=== PATIENT | male | born 1970 | race Caucasian/White ===

== ENCOUNTER 2018-06-11 08:37 | Emergency (ER) | END 2018-06-11 11:26 | disposition home or self-care (01) ==

== ENCOUNTER 2018-09-11 08:25 | Emergency (ER) | payer BC ==
[~2018-09-11] VITALS: Ht 172.7 cm; Wt 84.0 kg
[~2018-09-11 08:25] MED LIST: ALBU18HF INHALATION; BENZ-6 PO; IBUP-1542 PO; PRED20TA PO
[2018-09-11 08:27] VITALS: BP 167/87; PULSE 60; RESP 18; Ht 172.7 cm; Wt 84.0 kg
[2018-09-11] MEDS ORDERED: AZIT250T PO (08:57)
[2018-09-11] MEDS ORDERED: PROM6.2515 PO (08:57)
[2018-09-11] MEDS ORDERED: ALBU8.5H8 INH (08:57)
--- NOTE | 2018-09-11 10:29 | ERD ---
ER Documentation Chief Complaint Chief Complaint pt bib self with c/o cough for a few wks, pain with coughing HPI 47-year-old male presenting with cough for a few weeks with associated chest wall pain. Patient has no pleuritic chest pain and denies any fevers. He describes as a dry cough and has not taken medications for symptoms. He denies any leg swelling or heart pain. Denies any radiating chest pain. Denies medical problems. NKDA. Surgical history denies. Social history denies ROS All systems reviewed and are negative except as per history of present illness. Medications Home Meds Active Scripts Albuterol Sulfate* (Proair HFA*) 8.5 Gm Hfa.aer.ad, 2 PUFF INH Q4, #1 INHALER Prov:CARL MEJIA PA-C 09/11/18 Promethazine Hcl* (Promethazine Hcl* Syrup) 6.25 Mg/5 Ml Syrup, 6.25 MG PO Q6H PRN for COUGH, #100 ML Prov:CARL MEJIA PA-C 09/11/18 Azithromycin* (Zithromax*) 250 Mg Tablet, 250 MG PO .ZPACK DIRECTED, #6 TAB TAKE 500 MG (2 TABS) THE FIRST DAY THEN 250 MG (1 TAB) DAYS 2-5 Prov:CARL MEJIA PA-C 09/11/18 Ibuprofen* (Motrin*) 600 Mg Tab, 600 MG PO Q6, #30 TAB Prov:MAVERICK LOPES PA-C 06/11/18 Prednisone* (Prednisone*) 20 Mg Tab, 40 MG PO DAILY for 5 Days, TAB Prov:MAVERICK LOPES PA-C 06/11/18 Benzonatate* (Tessalon Perle*) 100 Mg Capsule, 100 MG PO Q8H PRN for COUGH for 7 Days, CAP Prov:MAVERICK LOPES PA-C 06/11/18 Albuterol Sulfate* (Ventolin HFA*) 18 Gm Hfa.aer.ad, 2 PUFF INHALATION Q6H, #1 INHALER Prov:MAVERICK LOPES PA-C 06/11/18 Allergies Allergies: Coded Allergies: No Known Allergy (Unverified , 09/11/18) PMhx/Soc Medical and Surgical Hx: pt denies Medical Hx, pt denies Surgical Hx Hx Alcohol Use: Yes Hx Substance Use: No Hx Tobacco Use: Yes Smoking Status: Former smoker FmHx Family History: No diabetes, No coronary disease, No other Physical Exam Vitals Vital Signs Date Temp Pulse Resp B/P (MAP) Pulse Ox O2 O2 Flow FiO2 Time Delivery Rate 09/11/18 97.6 60 18 167/87 98 08:27 (113) Physical Exam GENERAL: The patient is well-appearing, well-nourished, in no acute distress HEENT: Atraumatic. Conjunctivae are pink. Pupils equal, round, and reactive to light. There is no scleral icterus. Tympanic membranes clear bilaterally. Oropharynx clear. NECK: C-spine is soft and supple. There is no meningismus. There is no cervical lymphadenopathy. CHEST: Clear to auscultation bilaterally. There are no rales, wheezes or rhonchi. HEART: Regular rate and rhythm. No murmurs, clicks, rubs or gallops Procedures/MDM ER course: Pertussis swab performed in ED. MDM: 37-year-old male presenting with dry persistent cough. Patient be discharged with supportive medications and antibiotics to prophylax against possible infection. I low suspicion for pneumonia and I do not feel patient requires imaging. Patient is discharged stricter precautions and told to follow-up with primary care. All questions answered at discharge Departure Diagnosis: Primary Impression: Cough Condition: Stable Patient Instructions: Cough, Chronic, Uncertain Cause, (Adult) Referrals: [facility] YOU HAVE RECEIVED A MEDICAL SCREENING EXAM AND THE RESULTS INDICATE THAT YOU DO NOT HAVE A CONDITION THAT REQUIRES URGENT TREATMENT IN THE EMERGENCY DEPARTMENT. FURTHER EVALUATION AND TREATMENT OF YOUR CONDITION CAN WAIT UNTIL YOU ARE SEEN IN YOUR DOCTORS OFFICE WITHIN THE NEXT 1-2 DAYS. IT IS YOUR RESPONSIBILITY TO MAKE AN APPOINTMENT FOR FOLOW-UP CARE. IF YOU HAVE A PRIMARY DOCTOR --you should call your primary doctor and schedule an appointment IF YOU DO NOT HAVE A PRIMARY DOCTOR YOU CAN CALL OUR PHYSICIAN REFERRAL HOTLINE AT IF YOU CAN NOT AFFORD TO SEE A PHYSICIAN YOU CAN CHOSE FROM THE FOLLOWING [facility] [address] [facility] [address] [facility] [address] [facility] [facility] [address] [facility]. [facility] [address]. [facility]. [address] Additional Instructions: FOLLOW UP WITH YOUR PRIMARY CARE PHYSICIAN TOMORROW.Return to this facility if you are not improving as expected. CARL MEJIA PA-C Sep 11, 2018 10:29
== END 2018-09-11 08:55 | disposition home or self-care (01) ==
LOC: FTE 08:25
DX: R05 Cough (principal); Z87.891 Personal history of nicotine dependence
CPT/HCPCS: 87206; 99283